=== PATIENT | female | born 1960 | race Caucasian/White ===

== ENCOUNTER → 2024-11-22 09:18 | Outpatient (BNVA) | payer OTHER, SELFPAY | PROVIDERS: Visit Provider Internal Medicine | DX: S63.8X1A Sprain of other part of right wrist and hand, initial encounter (principal); W22.8XXA Striking against or struck by other objects, initial encounter | CPT/HCPCS: 73110; 73130; 99203 ==

== ENCOUNTER → 2024-11-29 09:23 | Outpatient (BNVA) | payer OTHER, SELFPAY | PROVIDERS: Visit Provider Physician Assistant Medical | DX: S60.221D Contusion of right hand, subsequent encounter (principal); S56.811D Strain of other muscles, fascia and tendons at forearm level, right arm, subsequent encounter; W22.03XD Walked into furniture, subsequent encounter | CPT/HCPCS: 73200; 99214 ==